=== PATIENT | female | born 1935 | race Caucasian/White ===

== ENCOUNTER 2019-05-06 16:12 | Inpatient (IN) | payer MEDICARE, OTHER ==
[2019-05-06 16:49] LABS: ADD MAN DIFF? NO
[2019-05-06] MEDS: SOD CHLORIDE 0.9% 1,000 ML IV (16:49)
[2019-05-06 16:52] LABS: WHITE BLOOD COUNT 6.6 10^3/ul (4.8-10.8)
[2019-05-06 16:52] LABS: BASOPHILS % 0.3 % (0.0-2.0); EOSINOPHILS % 0.2 % (0.0-7.0); HEMATOCRIT 33.1 % (37.0-47.0); HEMOGLOBIN 10.4 g/dl (12.0-16.0); LYMPHOCYTES # 0.6 10^3/ul (0.8-2.9); LYMPHOCYTES % 9.6 % (15.0-51.0); MEAN CORPUSCULAR HEMOGLOBIN 25.7 pg (29.0-33.0); MEAN CORPUSCULAR HGB CONC 31.4 g/dl (32.0-37.0); MEAN CORPUSCULAR VOLUME 81.9 fl (82.0-101.0); MEAN PLATELET VOLUME 9.2 fl (7.4-10.4); MONOCYTE # 0.6 10^3/ul (0.3-0.9); MONOCYTES % 8.5 % (0.0-11.0); NEUTROPHIL # 5.4 10^3/ul (1.6-7.5); NEUTROPHILS % 81.1 % (39.0-77.0); PLATELET COUNT 418 10^3/UL (140-415); RED BLOOD COUNT 4.04 10^6/ul (4.20-5.40); RED CELL DISTRIBUTION WIDTH 15.3 % (11.5-14.5)
[2019-05-06 17:11] LABS: INR 1.07; PT RATIO 1.1
[2019-05-06 17:12] LABS: PARTIAL THROMBOPLASTIN TIME 31.1 Sec (23.0-35.0)
[2019-05-06 17:23] LABS: ALANINE AMINOTRANSFERASE 18 IU/L (13-69); ALBUMIN 2.7 g/dl (3.3-4.9); ALBUMIN/GLOBULIN RATIO 0.93; ALKALINE PHOSPHATASE 102 IU/L (42-121); ANION GAP 5 (5-13); ASPARTATE AMINO TRANSFERASE 23 IU/L (15-46); BILIRUBIN,INDIRECT 0.3 mg/dl (0-1.1); BILIRUBIN,TOTAL 0.3 mg/dl (0.2-1.3); BLOOD UREA NITROGEN 14 mg/dl (7-20); CALCIUM 8.9 mg/dl (8.4-10.2); CARBON DIOXIDE 30 mmol/L (21-31); CHLORIDE 105 mmol/L (97-110); CREATININE 0.81 mg/dl (0.44-1.00); GLUCOSE 120 mg/dl (70-220); POTASSIUM 3.8 mmol/L (3.5-5.1); SODIUM 140 mmol/L (135-144); TOTAL PROTEIN 5.6 g/dl (6.1-8.1)
[2019-05-06 17:35] LABS: TROPONIN-I 0.021 ng/ml (0.000-0.120)
[2019-05-06 17:40] LABS: FREE THYROXINE INDEX (Calc) 2.71 ug/ml (0.65-3.89); T3 UPTAKE 44.4 % (23.5-40.5); T4 (THYROXINE) 6.1 ug/dl (5.5-11.0)
[2019-05-06] MEDS: IOHEXOL 300MG/ML 150 ML BTL (18:36)
[2019-05-06] MEDS: SOD CHLORIDE 0.9% 100 ML (18:36)
[2019-05-06 19:51] LABS: ADD UMIC NO; UR ASCORBIC ACID NEGATIVE (NEGATIVE); UR BILIRUBIN (Dip) NEGATIVE (NEGATIVE); UR BLOOD (Dip) NEGATIVE (NEGATIVE); UR CLARITY CLEAR (CLEAR); UR COLOR YELLOW (YELLOW); UR GLUCOSE (Dip) NEGATIVE (NEGATIVE); UR KETONES (Dip) NEGATIVE (NEGATIVE); UR LEUKOCYTE ESTERASE (Dip) NEGATIVE Leu/ul (NEGATIVE); UR NITRITE (Dip) NEGATIVE (NEGATIVE); UR SPECIFIC GRAVITY (Dip) 1.023 (1.003-1.030); UR TOTAL PROTEIN (Dip) NEGATIVE (NEGATIVE); UR UROBILINOGEN (Dip) NEGATIVE (NEGATIVE)
[2019-05-06] MEDS ORDERED: NACL 0.9% 3 ML SYG IV (20:00)
[2019-05-06] MEDS ORDERED: ONDANSETRON 4 MG INJ IV (20:00)
[2019-05-06] MEDS ORDERED: ONDANSETRON 4 MG TAB PO (20:00)
[2019-05-06] MEDS ORDERED: ACETAMINOPHEN 325 MG TAB PO ×2 (20:00)
[2019-05-06] MEDS ORDERED: DOCUSATE SODIUM 100 MG CAP PO (20:00)
[2019-05-06] MEDS ORDERED: BISACODYL (EC) 5 MG TAB PO (20:00)
[2019-05-06] MEDS ORDERED: HYDROCODONE/APAP (5/325) TAB PO (20:00)
[2019-05-06] MEDS: HEPARIN 5,000 UNIT/1 ML VIAL SC (22:37)
[2019-05-07] MEDS: HEPARIN 5,000 UNIT/1 ML VIAL SC ×3 (05:44→21:20)
[2019-05-07 05:56] LABS: ADD MAN DIFF? NO
[2019-05-07 06:08] LABS: ABNORMAL IP MESSAGE 1; BASOPHILS % 0.4 % (0.0-2.0); EOSINOPHILS % 0.2 % (0.0-7.0); HEMATOCRIT 31.1 % (37.0-47.0); HEMOGLOBIN 9.7 g/dl (12.0-16.0); LYMPHOCYTES # 0.6 10^3/ul (0.8-2.9); LYMPHOCYTES % 11.4 % (15.0-51.0); MEAN CORPUSCULAR HEMOGLOBIN 25.5 pg (29.0-33.0); MEAN CORPUSCULAR HGB CONC 31.2 g/dl (32.0-37.0); MEAN CORPUSCULAR VOLUME 81.8 fl (82.0-101.0); MEAN PLATELET VOLUME 9.4 fl (7.4-10.4); MONOCYTE # 0.5 10^3/ul (0.3-0.9); NEUTROPHIL # 3.9 10^3/ul (1.6-7.5); NEUTROPHILS % 78.6 % (39.0-77.0); PLATELET COUNT 384 10^3/UL (140-415); RED CELL DISTRIBUTION WIDTH 15.2 % (11.5-14.5)
[2019-05-07 06:20] LABS: INR 1.12; PROTIME 14.5 Sec (11.9-14.9); PT RATIO 1.1
[2019-05-07 06:21] LABS: POSITIVE DIFF @See below
[2019-05-07 06:25] LABS: IRON 14 ug/dl (35-150)
[2019-05-07 06:35] LABS: % IRON SATURATION 9 % SAT (22-52); TOTAL IRON BINDING CAPACITY 163 ug/dl (241-421)
[2019-05-07 06:50] LABS: ALANINE AMINOTRANSFERASE 15 IU/L (13-69); ALBUMIN 2.5 g/dl (3.3-4.9); ALBUMIN/GLOBULIN RATIO 0.83; ALKALINE PHOSPHATASE 93 IU/L (42-121); ANION GAP 6 (5-13); ASPARTATE AMINO TRANSFERASE 18 IU/L (15-46); BILIRUBIN,INDIRECT 0.3 mg/dl (0-1.1); BILIRUBIN,TOTAL 0.3 mg/dl (0.2-1.3); BLOOD UREA NITROGEN 13 mg/dl (7-20); CALCIUM 8.1 mg/dl (8.4-10.2); CARBON DIOXIDE 27 mmol/L (21-31); CHLORIDE 109 mmol/L (97-110); CHOL/HDL RATIO 5.3 RATIO; CHOLESTEROL 178 mg/dl (100-200); GLUCOSE 121 mg/dl (70-220); HDL CHOLESTEROL 33 mg/dl (33-92); LDL CHOLESTEROL,CALCULATED 118 mg/dl; MAGNESIUM 1.3 mg/dl (1.7-2.5); POTASSIUM 3.2 mmol/L (3.5-5.1); SODIUM 142 mmol/L (135-144); TOTAL PROTEIN 5.5 g/dl (6.1-8.1); TRIGLYCERIDES 135 mg/dl (0-149)
[2019-05-07 07:11] LABS: CANCER ANTIGEN 125 82.7 U/ml (0.0-35.0); CARCINOEMBRYONIC ANTIGEN 4.2 ng/ml (0.0-5.0)
[2019-05-07 07:15] LABS: CANCER ANTIGEN 19-9 4.7 U/ml (0.0-37.0)
[2019-05-07 07:43] LABS: HEMOGLOBIN A1C 5.5 % (0-5.9)
[2019-05-07] MEDS: AMLODIPINE 2.5 MG TAB PO (09:57)
[2019-05-07] MEDS: SOD FERRIC GLUC COMPLX 125 MG in SOD CHLORIDE 0.9% 100 ML IVPB (17:17)
[2019-05-07] MEDS: POTASSIUM CHLORIDE (SR) 20 MEQ TAB PO (17:40)
[2019-05-07] MEDS: MAGNESIUM SULFATE 3 GM in DEXTROSE 5% 100 ML IVPB (19:23)
[2019-05-08] MEDS: HEPARIN 5,000 UNIT/1 ML VIAL SC ×3 (05:41→21:41)
[2019-05-08 06:10] LABS: ADD MAN DIFF? NO
[2019-05-08 06:19] LABS: BASOPHILS % 0.3 % (0.0-2.0); EOSINOPHILS % 0.2 % (0.0-7.0); HEMATOCRIT 31.5 % (37.0-47.0); HEMOGLOBIN 9.8 g/dl (12.0-16.0); LYMPHOCYTES # 0.6 10^3/ul (0.8-2.9); LYMPHOCYTES % 10.2 % (15.0-51.0); MEAN CORPUSCULAR HEMOGLOBIN 25.3 pg (29.0-33.0); MEAN CORPUSCULAR HGB CONC 31.1 g/dl (32.0-37.0); MEAN CORPUSCULAR VOLUME 81.4 fl (82.0-101.0); MEAN PLATELET VOLUME 9.1 fl (7.4-10.4); MONOCYTE # 0.5 10^3/ul (0.3-0.9); MONOCYTES % 7.8 % (0.0-11.0); NEUTROPHIL # 4.8 10^3/ul (1.6-7.5); NEUTROPHILS % 81.2 % (39.0-77.0); PLATELET COUNT 388 10^3/UL (140-415); RED BLOOD COUNT 3.87 10^6/ul (4.20-5.40); RED CELL DISTRIBUTION WIDTH 15.3 % (11.5-14.5)
[2019-05-08 06:19] LABS: WHITE BLOOD COUNT 5.9 10^3/ul (4.8-10.8)
[2019-05-08 06:56] LABS: ALANINE AMINOTRANSFERASE 18 IU/L (13-69); ALBUMIN 2.5 g/dl (3.3-4.9); ALBUMIN/GLOBULIN RATIO 0.83; ALKALINE PHOSPHATASE 91 IU/L (42-121); ANION GAP 4 (5-13); ASPARTATE AMINO TRANSFERASE 19 IU/L (15-46); BILIRUBIN,INDIRECT 0.3 mg/dl (0-1.1); BILIRUBIN,TOTAL 0.3 mg/dl (0.2-1.3); BLOOD UREA NITROGEN 12 mg/dl (7-20); CALCIUM 8.2 mg/dl (8.4-10.2); CARBON DIOXIDE 30 mmol/L (21-31); CHLORIDE 105 mmol/L (97-110); GLUCOSE 114 mg/dl (70-220); POTASSIUM 3.5 mmol/L (3.5-5.1); SODIUM 139 mmol/L (135-144); TOTAL PROTEIN 5.5 g/dl (6.1-8.1)
[2019-05-08 06:58] LABS: PHOSPHORUS 2.8 mg/dl (2.5-4.9)
[2019-05-08 06:58] LABS: MAGNESIUM 1.9 mg/dl (1.7-2.5)
[2019-05-08] MEDS: AMLODIPINE 2.5 MG TAB PO (08:32)
[2019-05-08] MEDS: IOHEXOL 300MG/ML 150 ML BTL (12:01)
[2019-05-08] MEDS: SOD CHLORIDE 0.9% 100 ML (12:01)
[2019-05-08] MEDS: SOD FERRIC GLUC COMPLX 125 MG in SOD CHLORIDE 0.9% 100 ML IVPB (13:23)
[2019-05-08] MEDS: ASPIRIN (EC) 81 MG TAB PO (13:28)
[2019-05-08] MEDS: METOPROLOL 25 MG TAB PO (20:08)
[2019-05-09 05:35] LABS: ADD MAN DIFF? NO
[2019-05-09] MEDS: HEPARIN 5,000 UNIT/1 ML VIAL SC ×3 (05:37→21:19)
[2019-05-09 05:40] LABS: WHITE BLOOD COUNT 4.5 10^3/ul (4.8-10.8)
[2019-05-09 05:40] LABS: BASOPHILS % 0.7 % (0.0-2.0); EOSINOPHILS % 0.4 % (0.0-7.0); HEMATOCRIT 29.5 % (37.0-47.0); HEMOGLOBIN 9.2 g/dl (12.0-16.0); LYMPHOCYTES # 0.8 10^3/ul (0.8-2.9); LYMPHOCYTES % 16.6 % (15.0-51.0); MEAN CORPUSCULAR HEMOGLOBIN 25.3 pg (29.0-33.0); MEAN CORPUSCULAR HGB CONC 31.2 g/dl (32.0-37.0); MEAN CORPUSCULAR VOLUME 81.3 fl (82.0-101.0); MEAN PLATELET VOLUME 9.1 fl (7.4-10.4); MONOCYTE # 0.5 10^3/ul (0.3-0.9); MONOCYTES % 10.6 % (0.0-11.0); NEUTROPHIL # 3.2 10^3/ul (1.6-7.5); NEUTROPHILS % 71.5 % (39.0-77.0); PLATELET COUNT 359 10^3/UL (140-415); RED BLOOD COUNT 3.63 10^6/ul (4.20-5.40); RED CELL DISTRIBUTION WIDTH 15.3 % (11.5-14.5)
[2019-05-09 06:08] LABS: ALANINE AMINOTRANSFERASE 15 IU/L (13-69); ALBUMIN 2.6 g/dl (3.3-4.9); ALBUMIN/GLOBULIN RATIO 0.92; ALKALINE PHOSPHATASE 90 IU/L (42-121); ANION GAP 2 (5-13); ASPARTATE AMINO TRANSFERASE 16 IU/L (15-46); BILIRUBIN,INDIRECT 0.3 mg/dl (0-1.1); BILIRUBIN,TOTAL 0.3 mg/dl (0.2-1.3); BLOOD UREA NITROGEN 14 mg/dl (7-20); CALCIUM 8.4 mg/dl (8.4-10.2); CARBON DIOXIDE 30 mmol/L (21-31); CHLORIDE 106 mmol/L (97-110); CREATININE 0.89 mg/dl (0.44-1.00); GLUCOSE 95 mg/dl (70-220); POTASSIUM 3.4 mmol/L (3.5-5.1); SODIUM 138 mmol/L (135-144); TOTAL PROTEIN 5.4 g/dl (6.1-8.1)
[2019-05-09 06:37] LABS: MAGNESIUM 1.8 mg/dl (1.7-2.5)
[2019-05-09 06:37] LABS: PHOSPHORUS 2.9 mg/dl (2.5-4.9)
[2019-05-09] MEDS: ASPIRIN (EC) 81 MG TAB PO (09:16)
[2019-05-09] MEDS: METOPROLOL 25 MG TAB PO ×2 (09:16→21:16)
[2019-05-09] MEDS: SOD FERRIC GLUC COMPLX 125 MG in SOD CHLORIDE 0.9% 100 ML IVPB (13:12)
[2019-05-09] MEDS ORDERED: hydrALAzine 20 MG INJ IV (20:30)
[2019-05-10 05:34] LABS: ADD MAN DIFF? NO
[2019-05-10 05:54] LABS: BASOPHILS % 0.5 % (0.0-2.0); EOSINOPHILS % 0.5 % (0.0-7.0); HEMATOCRIT 30.5 % (37.0-47.0); HEMOGLOBIN 9.4 g/dl (12.0-16.0); LYMPHOCYTES # 0.8 10^3/ul (0.8-2.9); MEAN CORPUSCULAR HEMOGLOBIN 25.3 pg (29.0-33.0); MEAN CORPUSCULAR HGB CONC 30.8 g/dl (32.0-37.0); MEAN CORPUSCULAR VOLUME 82.2 fl (82.0-101.0); MEAN PLATELET VOLUME 9.6 fl (7.4-10.4); MONOCYTE # 0.5 10^3/ul (0.3-0.9); MONOCYTES % 7.8 % (0.0-11.0); NEUTROPHIL # 4.7 10^3/ul (1.6-7.5); NEUTROPHILS % 77.9 % (39.0-77.0); PLATELET COUNT 377 10^3/UL (140-415); RED BLOOD COUNT 3.71 10^6/ul (4.20-5.40); RED CELL DISTRIBUTION WIDTH 15.6 % (11.5-14.5)
[2019-05-10] MEDS: HEPARIN 5,000 UNIT/1 ML VIAL SC ×3 (06:09→21:36)
[2019-05-10 06:10] LABS: ALANINE AMINOTRANSFERASE 23 IU/L (13-69); ALBUMIN 2.6 g/dl (3.3-4.9); ALBUMIN/GLOBULIN RATIO 0.78; ALKALINE PHOSPHATASE 97 IU/L (42-121); ANION GAP 6 (5-13); ASPARTATE AMINO TRANSFERASE 20 IU/L (15-46); BILIRUBIN,INDIRECT 0.4 mg/dl (0-1.1); BILIRUBIN,TOTAL 0.4 mg/dl (0.2-1.3); BLOOD UREA NITROGEN 18 mg/dl (7-20); CALCIUM 8.4 mg/dl (8.4-10.2); CARBON DIOXIDE 30 mmol/L (21-31); CHLORIDE 104 mmol/L (97-110); CREATININE 0.84 mg/dl (0.44-1.00); GLUCOSE 100 mg/dl (70-220); POTASSIUM 3.8 mmol/L (3.5-5.1); SODIUM 140 mmol/L (135-144); TOTAL PROTEIN 5.9 g/dl (6.1-8.1)
[2019-05-10 06:15] LABS: MAGNESIUM 1.7 mg/dl (1.7-2.5)
[2019-05-10] MEDS: ASPIRIN (EC) 81 MG TAB PO (09:00)
[2019-05-10] MEDS: METOPROLOL 25 MG TAB PO ×2 (10:41→21:34)
[2019-05-10 22:04] LABS: CANCER ANTIGEN 15-3 16 U/mL (<32)
[2019-05-11] MEDS: HEPARIN 5,000 UNIT/1 ML VIAL SC ×3 (05:21→21:52)
[2019-05-11] MEDS: MEGESTROL 40 MG TAB PO ×4 (09:00→21:44)
[2019-05-11] MEDS: ASPIRIN (EC) 81 MG TAB PO (09:33)
[2019-05-11] MEDS: METOPROLOL 25 MG TAB PO ×2 (09:34→21:44)
[2019-05-12] MEDS: HEPARIN 5,000 UNIT/1 ML VIAL SC ×3 (05:57→21:36)
[2019-05-12] MEDS: ASPIRIN (EC) 81 MG TAB PO (08:55)
[2019-05-12] MEDS: MEGESTROL 40 MG TAB PO ×4 (08:55→21:35)
[2019-05-12] MEDS: METOPROLOL 25 MG TAB PO ×2 (08:56→21:35)
[2019-05-12 09:48] LABS: ADD MAN DIFF? NO
[2019-05-12 09:49] LABS: WHITE BLOOD COUNT 6.9 10^3/ul (4.8-10.8)
[2019-05-12 09:50] LABS: BASOPHILS % 0.4 % (0.0-2.0); EOSINOPHILS % 0.4 % (0.0-7.0); HEMATOCRIT 33.2 % (37.0-47.0); HEMOGLOBIN 10.3 g/dl (12.0-16.0); LYMPHOCYTES # 0.7 10^3/ul (0.8-2.9); LYMPHOCYTES % 9.5 % (15.0-51.0); MEAN CORPUSCULAR HEMOGLOBIN 25.4 pg (29.0-33.0); MEAN PLATELET VOLUME 9.2 fl (7.4-10.4); MONOCYTE # 0.6 10^3/ul (0.3-0.9); NEUTROPHIL # 5.6 10^3/ul (1.6-7.5); NEUTROPHILS % 81.3 % (39.0-77.0); PLATELET COUNT 441 10^3/UL (140-415); RED BLOOD COUNT 4.05 10^6/ul (4.20-5.40); RED CELL DISTRIBUTION WIDTH 15.6 % (11.5-14.5)
[2019-05-12 10:19] LABS: ANION GAP 7 (5-13); BLOOD UREA NITROGEN 14 mg/dl (7-20); CALCIUM 8.6 mg/dl (8.4-10.2); CARBON DIOXIDE 27 mmol/L (21-31); CHLORIDE 105 mmol/L (97-110); CREATININE 0.85 mg/dl (0.44-1.00); GLUCOSE 195 mg/dl (70-220); POTASSIUM 3.6 mmol/L (3.5-5.1); SODIUM 139 mmol/L (135-144)
[2019-05-13] MEDS: HEPARIN 5,000 UNIT/1 ML VIAL SC ×3 (06:24→21:35)
[2019-05-13] MEDS: ASPIRIN (EC) 81 MG TAB PO (09:00)
[2019-05-13] MEDS: METOPROLOL 25 MG TAB PO ×2 (09:15→21:32)
[2019-05-13] MEDS: MEGESTROL 40 MG TAB PO ×4 (09:15→21:32)
[2019-05-14] MEDS: HEPARIN 5,000 UNIT/1 ML VIAL SC ×3 (06:02→21:48)
[2019-05-14] MEDS: ASPIRIN (EC) 81 MG TAB PO (09:00)
[2019-05-14] MEDS: METOPROLOL 25 MG TAB PO ×2 (09:18→21:44)
[2019-05-14] MEDS: MEGESTROL 40 MG TAB PO ×4 (09:18→21:44)
[2019-05-15] MEDS: HEPARIN 5,000 UNIT/1 ML VIAL SC ×2 (06:10→13:06)
[2019-05-15] MEDS: ASPIRIN (EC) 81 MG TAB PO (09:00)
[2019-05-15] MEDS: MEGESTROL 40 MG TAB PO ×3 (09:21→17:33)
[2019-05-15] MEDS: METOPROLOL 25 MG TAB PO (09:22)
== END 2019-05-15 18:40 | DRG 180 ==
LOC: E/R 16:12 → 2NE 19:44
PROVIDERS: Family Medicine
PROC: 0BBJ3ZX Excision of Left Lower Lung Lobe, Percutaneous Approach, Diagnostic (ICD-10-PCS; principal; 2019-05-07)
DX: C34.12 Malignant neoplasm of upper lobe, left bronchus or lung (principal); E43 Unspecified severe protein-calorie malnutrition; Z68.1 Body mass index [BMI] 19.9 or less, adult; M84.48XA Pathological fracture, other site, initial encounter for fracture; E86.0 Dehydration; I73.9 Peripheral vascular disease, unspecified; I10 Essential (primary) hypertension; I25.10 Atherosclerotic heart disease of native coronary artery without angina pectoris; D50.9 Iron deficiency anemia, unspecified; E78.5 Hyperlipidemia, unspecified; R62.7 Adult failure to thrive; Z79.82 Long term (current) use of aspirin; Z87.311 Personal history of (healed) other pathological fracture; Z87.891 Personal history of nicotine dependence; Z95.5 Presence of coronary angioplasty implant and graft
CPT/HCPCS: 36415; 71045; 71260; 74177; 77012; 80048; 80053; 80061; 81003; 82306; 82378; 82728; 83036; 83540; 83735; 84100; 84436; 84443; 84479; 84484; 85025; 85610; 85730; 86300; 86301; 86304; 87086; 88307; 88313; 88341; 88342; 93005; 93306; 97116; 97162; 97530; 99217; 99285-25; G0378